=== PATIENT | female | born 1935 | race Caucasian/White ===

== ENCOUNTER 2023-01-04 13:52 | Outpatient (CLI) | payer MEDICARE, BC, SELFPAY ==
--- NOTE | 2023-01-04 14:00 | CRLHL7_ITS ---
For Patients: As a result of the Century Cures Act, medical imaging exams and procedure reports are released immediately into your electronic medical record. You may view this report before your referring provider. If you have questions, please contact your health care provider. Indication: Lung nodule Technique: Noncontrast CT chest Please note that all CT scans at this facility use dose modulation, iterative reconstruction, and/or weight-based dosing when appropriate to reduce radiation dose to as low as reasonably achievable. Comparison: CT abdomen and pelvis 06/02/2017 Findings: Atherosclerotic changes noted in the aorta. No enlarged mediastinal, hilar or axillary lymph nodes. The thyroid gland is within normal limits. 3.7 millimeter nodule within the right lower lobe, . This appears similar to the prior study. Biapical pleural parenchymal scarring. Spiculated nodular density within the right upper lobe at the apex measuring 8.3 millimeters, 11/10. Impression: Spiculated 8.3 millimeter nodule at the right apex adjacent to pleural parenchymal scarring. Recommend follow-up CT chest in 3 months for further evaluation. Similar 3.7 millimeter nodule within the right lower lobe. Please note that all CT scans at this facility use dose modulation, iterative reconstruction, and/or weight-based dosing when appropriate to reduce radiation dose to as low as reasonably achievable. Dictated by Luis Guevara MD @ 01/05/2023 12:20:16 PM (Electronically Signed)
== END 2023-01-04 13:53 | disposition home or self-care (01) ==
PROVIDERS: PCP Family Medicine; Visit Provider Family Medicine
DX: R91.1 Solitary pulmonary nodule (principal)
CPT/HCPCS: 71250

== ENCOUNTER 2023-02-14 09:47 | Outpatient (CLI) | payer MEDICARE, BC, SELFPAY | END 2023-02-14 09:48 | disposition home or self-care (01) | LOC: INJ CL 09:47 | PROVIDERS: PCP Family Medicine; Visit Provider Family Medicine | DX: M54.16 Radiculopathy, lumbar region (principal); M51.36 Other intervertebral disc degeneration, lumbar region | CPT/HCPCS: 62323; J0702; Q9966 ==

== ENCOUNTER 2023-04-04 08:30 | Outpatient (RCR) | payer MEDICARE, BC, SELFPAY | END 2023-08-02 23:59 | disposition home or self-care (01) | PROVIDERS: PCP Family Medicine; Visit Provider Family Medicine | DX: M25.552 Pain in left hip (principal); Z51.89 Encounter for other specified aftercare | CPT/HCPCS: 97110; 97140; 97163 ==

== ENCOUNTER 2023-11-20 13:00 | Outpatient (RCR) | payer MEDICARE, BC, SELFPAY | END 2023-12-18 14:00 | disposition home or self-care (01) | PROVIDERS: PCP Family Medicine; Visit Provider Family Medicine | DX: M18.11 Unilateral primary osteoarthritis of first carpometacarpal joint, right hand (principal); R52 Pain, unspecified; Z51.89 Encounter for other specified aftercare | CPT/HCPCS: 97110; 97165; L3913; X5282 ==

== ENCOUNTER 2025-04-28 14:30 | Outpatient (RCR) | payer MEDICARE, BC, SELFPAY | END 2025-07-22 14:00 | disposition home or self-care (01) | PROVIDERS: PCP Family Medicine; Visit Provider Family Medicine | DX: M25.541 Pain in joints of right hand (principal); M25.542 Pain in joints of left hand; M18.0 Bilateral primary osteoarthritis of first carpometacarpal joints; M54.16 Radiculopathy, lumbar region; M47.816 Spondylosis without myelopathy or radiculopathy, lumbar region; M25.552 Pain in left hip; Z51.89 Encounter for other specified aftercare | CPT/HCPCS: 97035; 97110; 97112; 97140; 97162; 97165; 97530; X5282 ==